=== PATIENT | female | born 1950 | race Caucasian/White ===

== ENCOUNTER 2016-08-31 20:17 | Emergency (ER) | payer MEDICARE, OTHER ==
--- NOTE | ~2016-08-31 | ER ---
PATIENT'S NAME: MARCI MOREIRA [facility] AGE: 66 Y [address] ROOM: [place] [address] LOCATION: [facility] ADMIT DATE: 08/31/2016 ER/Outpatient Report DISCHARGE DATE: 08/31/2016 FAMILY PHYSICIAN: Rachael Allred MD ATTENDING PHYSICIAN: Reed Patel Time of Arrival: 2019 hours. Time of Evaluation: 2030 hours. CHIEF COMPLAINT: Painful urination. HISTORY OF PRESENT ILLNESS: The patient states for the past 24 hours has had pain with urination, having itching of the yudi area, has not noticed any blood in her urine. Has had a fever off and on today, has not been nauseated, no vomiting, no abdominal pain. ALLERGIES: ON HER CHART AND REVIEWED BY ME. MEDICATIONS: On her chart and reviewed by me. PAST MEDICAL HISTORY: Wxs-[id number] diabetes, hypertension, hypercholesterol. PAST SURGICAL HISTORY: Total knee surgery, ankle surgery. SOCIAL HISTORY: She denies the use of tobacco, drugs, or alcohol. REVIEW OF SYSTEMS: All negative other than those mentioned in the HPI. PHYSICAL EXAMINATION: VITAL SIGNS: Blood pressure is 149/92, pulse is 77, respirations 16, temperature of 99.4 tympanic, O2 saturation is 96% on room air. GENERAL: She is awake, alert, and oriented x4. SKIN: [place], warm, and dry. RESPIRATIONS: Even and nonlabored. Lung sounds are clear throughout. HEART: Regular rate and rhythm. ABDOMEN: Soft, nondistended. Bowel sounds are present. Negative tenderness of the flank area. PATIENT'S NAME: MARCI MOREIRA [facility] AGE: 66 Y [address] ROOM: [place] [address] LOCATION: [facility] ADMIT DATE: 08/31/2016 ER/Outpatient Report DISCHARGE DATE: 08/31/2016 FAMILY PHYSICIAN: Rachael Allred MD ATTENDING PHYSICIAN: Reed Patel LABORATORY DATA AND X-RAY: Clean-catch UA was obtained. It does shows 500 leukocytes, negative nitrites, 250 of blood. Micro is packed white blood cells and many bacteria. IMPRESSION: Urinary tract infection. PLAN: Home, rest. Increase her fluids. Tylenol or ibuprofen as needed for fever. Prescription was written for Cipro to take as directed. She is to follow up with her primary provider in the next 2-3 days if symptoms persist or worsen. I did contact the lab to have the urine cultured. The patient verbalized understanding of plan of action. PEARL TEIXEIRA APRN FOR [facility]/alex /[id number] d: 09/01/16 0325 t: 09/05/16 1239, OUTPATIENT REPORT
[2016-08-31 20:42] LABS: BILIRUBIN URINE NEGATIVE (NEGATIVE); BLOOD URINE 250 /UL (NEGATIVE); COLOR URINE YELLOW (YELLOW); GLUCOSE URINE NEGATIVE (NEGATIVE); KETONE URINE NEGATIVE (NEGATIVE); LEUKOCYTES URINE 500 /UL (NEGATIVE); NITRITE URINE NEGATIVE (NEGATIVE); PROTEIN URINE 100 mg/dL (NEGATIVE); SPEC GRAVITY URINE 1.005 (1.003-1.035); TURBIDITY URINE CLEAR (CLEAR); UROBILINOGEN URINE NORMAL (NORMAL)
[2016-08-31 20:55] LABS: RBC URINE 20-50 #/HPF (NEGATIVE); WBC URINE PACKED FIELD #/HPF (NEGATIVE)
[2016-08-31 20:58] LABS: BACTERIA URINE MANY (NEGATIVE); MUCUS URINE 1+ (NEGATIVE)
== END 2016-08-31 21:09 | disposition disaster alternative care site (69) ==
LOC: GMED 20:17
PROVIDERS: Nurse Practitioner Family
DX: N39.0 Urinary tract infection, site not specified (principal); E11.9 Type 2 diabetes mellitus without complications; I10 Essential (primary) hypertension; E78.00 Pure hypercholesterolemia, unspecified; Z98.890 Other specified postprocedural states; Z88.2 Allergy status to sulfonamides; Z88.1 Allergy status to other antibiotic agents; Z88.8 Allergy status to other drugs, medicaments and biological substances; Z91.040 Latex allergy status; Z79.84 Long term (current) use of oral hypoglycemic drugs; Z79.899 Other long term (current) drug therapy